=== PATIENT | female | born 1950 | race Caucasian/White ===

== ENCOUNTER 2016-07-18 08:14 | Emergency (ER) | payer MEDICARE, BC ==
[2016-07-18] VITALS (7 sets, daily range): BP systolic 191–223; BP diastolic 89–91; PULSE 46–60; RESP 18; TEMP 98.1; O2SAT 96–97
[~2016-07-18] VITALS: Ht 160 cm; Wt 111.0 kg
[~2016-07-18 08:14] MED LIST: ALLO300T2 PO; CHOL50008 PO; COUM5TAB PO; COUM7.5T PO; FOLI800T PO; METF1000 PO; PRIL40CA PO; SYNT175T PO; TOPR100T PO
[2016-07-18] MEDS ORDERED: PANT40TA3 PO (08:32)
--- NOTE | 2016-07-18 09:09 | PD ---
HPI Chief Complaint: Hypertension Time Seen by Provider: 08:57 Travel History International Travel<30 days: No Contact w/Intl Traveler<30days: No Traveled to known affect area: No History of Present Illness HPI 66-year-old female with history of hypertension, diabetes, gastric bypass, PE on Coumadin, here for evaluation of elevated blood pressure and headache. The patient reports that for the last 2 weeks she has been having issues with elevated blood pressure. She is on metoprolol and was started on losartan 2 weeks ago. 3 days ago she had lumbar spine injection for spinal stenosis. This morning when she woke up she had a frontal dull headache described as a pressure which has progressively getting worse, is moderate. No photophobia. No neck pain or stiffness. No fevers or chills. No back pain. No chest pain or dyspnea. No visual disturbances. No paresthesias or motor deficits. PFSH Past Medical History Hx Anticoagulant Therapy: Yes (COUMADIN) Cancer: No Cardiovascular Problems: Yes (HTN) Diabetes: Yes (BORDERLINE) Patient Takes Glucophage: Yes Endocrine: No Fibromyalgia: Yes Gastrointestinal Disorders: Yes (gerd, "BAD PANCREATITIS X 2") GERD: Yes Gout: Yes Genitourinary: Yes (gout) Hepatitis: No Hiatal Hernia: No Hypertension: Yes Immune Disorder: Yes (fibromyalgia) Musculoskeletal: Yes (back pain) Neurologic: No Psychiatric: No Reproductive: No Respiratory: Yes (BILATERAL PE ) Thyroid Disease: No Influenza Vaccination: Yes ?: Not Past Surgical History Abdominal Surgery: Yes (appy, gallbladder) AICD: No Appendectomy: Yes Body Medical Devices: none Cardiac Surgery: No Cholecystectomy: Yes Ear Surgery: No Endocrine Surgery: No Eye Surgery: No Genitourinary Surgery: Yes (cysto) Gynecologic Surgery: Yes (lap cyst removal) Joint Replacement: No Oral Surgery: No Pacemaker: No Thoracic Surgery: No Other Surgery: Yes Social History Alcohol Use: No Tobacco Use: No Substance Use: No Allergies-Medications (Allergen,Severity, Reaction): Coded Allergies: Lovenox (Unverified Allergy, Severe, pancreatitis, 07/18/16) Reported Meds & Prescriptions Reported Meds & Active Scripts Active Reported Pantoprazole (Pantoprazole Sodium) 40 Mg Tab 40 Mg PO DAILY Allopurinol 300 Mg Tab 300 Mg PO HS Folic Acid 800 Mcg Tab 800 Mcg PO DAILY Metformin (Metformin HCl) 1,000 Mg Tab 1,000 Mg PO BIDPC With meals Synthroid (Levothyroxine Sodium) 175 Mcg Tab 175 Mcg PO DAILY Toprol XL (Metoprolol Succinate) 100 Mg Tab 100 Mg PO BID Vitamin D3 (Cholecalciferol) 5,000 Unit Tab 8,000 Units PO DAILY Coumadin (Warfarin) 5 Mg Tab 2.5 Mg PO DAILY Review of Systems Except as stated in HPI: all other systems reviewed are Neg Physical Exam Narrative GENERAL: Well-developed, well-nourished, pleasant, comfortable, no acute distress. SKIN: Warm and dry. No rash. HEAD: Atraumatic. Normocephalic. EYES: Pupils equal, round, 3 mm, reactive to light. EOMI. No scleral icterus. No injection or drainage. ENT: No nasal bleeding or discharge. Mucous membranes pink and moist. Normal tympanic membrane and external auditory canals bilaterally. NECK: Trachea midline. No JVD. No nuchal rigidity. CARDIOVASCULAR: Regular rate and rhythm. RESPIRATORY: No accessory muscle use. Clear to auscultation. Breath sounds equal bilaterally. GASTROINTESTINAL: Abdomen soft, non-tender, nondistended. MUSCULOSKELETAL: No obvious deformities. No clubbing. No cyanosis. No edema. NEUROLOGICAL: Awake and alert. No obvious cranial nerve deficits. Motor grossly within normal limits. Normal speech. No focal deficits. PSYCHIATRIC: Appropriate mood and affect; insight and judgment normal. Data Data Last Documented VS Vital Signs Date Time Temp Pulse Resp B/P Pulse Ox O2 Delivery O2 Flow Rate FiO2 07/18/16 10:15 191/91 07/18/16 09:55 60 18 97 Room Air 07/18/16 08:17 98.1 Orders Basic Metabolic Panel (Bmp) (07/18/16 09:04) Complete Blood Count With Diff (07/18/16 09:04) Prothrombin Time / Inr (Pt) (07/18/16 09:04) Act Partial Throm Time (Ptt) (07/18/16 09:04) Iv Access Insert/Monitor (07/18/16 09:04) Ecg Monitoring (07/18/16 09:04) Oximetry (07/18/16 09:04) Sodium Chloride 0.9% Flush (Ns Flush) (07/18/16 09:15) Electrocardiogram (07/18/16 09:04) Ct Brain W/O Iv Contrast(Rout) (07/18/16 ) Acetaminophen (Tylenol) (07/18/16 09:15) Metoclopramide Inj (Reglan Inj) (07/18/16 09:15) Hydralazine Inj (Apresoline Inj) (07/18/16 09:15) Labs Laboratory Tests Test 07/18/16 08:30 White Blood Count 7.4 TH/MM3 Red Blood Count 3.85 MIL/MM3 Hemoglobin 12.6 GM/DL Hematocrit 37.1 % Mean Corpuscular Volume 96.2 FL Mean Corpuscular Hemoglobin 32.6 PG Mean Corpuscular Hemoglobin 33.8 % Concent Red Cell Distribution Width 13.3 % Platelet Count 206 TH/MM3 Mean Platelet Volume 9.0 FL Neutrophils (%) (Auto) 71.2 % Lymphocytes (%) (Auto) 19.0 % Monocytes (%) (Auto) 7.6 % Eosinophils (%) (Auto) 0.4 % Basophils (%) (Auto) 1.8 % Neutrophils # (Auto) 5.3 TH/MM3 Lymphocytes # (Auto) 1.4 TH/MM3 Monocytes # (Auto) 0.6 TH/MM3 Eosinophils # (Auto) 0.0 TH/MM3 Basophils # (Auto) 0.1 TH/MM3 CBC Comment DIFF FINAL Differential Comment Prothrombin Time 18.4 SEC Prothromb Time International 1.6 RATIO Ratio Activated Partial 29.2 SEC Thromboplast Time Sodium Level 139 MEQ/L Potassium Level 4.1 MEQ/L Chloride Level 107 MEQ/L Carbon Dioxide Level 24.8 MEQ/L Anion Gap 7 MEQ/L Blood Urea Nitrogen 27 MG/DL Creatinine 0.80 MG/DL Estimat Glomerular Filtration 72 ML/MIN Rate Random Glucose 120 MG/DL Calcium Level 9.2 MG/DL [facility] Medical Decision Making Medical Screen Exam Complete: Yes Emergency Medical Condition: Yes Medical Record Reviewed: Yes Interpretation(s) EKG: Sinus, rate 45, normal axis, normal intervals, no acute ischemic abnormality. Differential Diagnosis Hypertensive urgency, hypertensive crisis, intracranial abnormality, uncontrolled blood pressure, tension headache, cluster headache, migraine Narrative Course Initial vital signs show heart rate 52, blood pressure 223/91, pulse ox 98% on room air, oral temp of 98.1F. CBC is unremarkable. BMP is remarkable for BUN 27, otherwise unremarkable. The patient denies melena or hematochezia. INR is 1.6. CT head read as normal exam. The patient was given Reglan, Tylenol, and IV hydralazine and headache has resolved. There is no nuchal rigidity. She is afebrile. I do not believe she has meningitis or encephalitis. BP improved to 198/83 after 10 mg of hydralazine. Bradycardia is likely secondary to metoprolol. The patient is not displaying any signs or symptoms of hypertensive crisis. I do not want to lower her blood pressure much quicker here in the emergency department. At this point my plan is to discharge her home with a prescription for hydralazine. She'll follow-up with her primary care physician this week. She was informed on when to return to the emergency department. She verbalizes understanding and agreement with plan. Diagnosis Primary Impression: Elevated blood pressure reading Additional Impression: Headache Qualified Code: R51 - Acute nonintractable headache, unspecified headache type Referrals: Primary Care Physician 3 days Additional Instructions: Follow-up with your primary care physician this week. Start taking hydralazine as prescribed. Return to the emergency department for worsening symptoms or any other concerns as discussed. Scripts Hydralazine 10 Mg Tab10 Mg PO TID 30 Days Ref 0 Take with a meal Prov:Simone Troncoso MD 07/18/16 Disposition: 01 DISCHARGE HOME Condition: Stable Simone Troncoso MD Jul 18, 2016 09:09
[2016-07-18 09:15] LABS: AUTOMATED NEUTROPHIL # 5.3 TH/MM3 (1.8-7.7); BASOPHIL # 0.1 TH/MM3 (0-0.2); BASOPHIL % 1.8 % (0.0-2.0); EOSINOPHIL % 0.4 % (0.0-4.0); HEMATOCRIT 37.1 % (35.0-46.0); HEMO FLAGS DIFF FINAL; LYMPHOCYTE # 1.4 TH/MM3 (1.0-4.8); MEAN CELL VOLUME 96.2 FL (80.0-100.0); MEAN CORPUSCULAR HEMOGLOBIN 32.6 PG (27.0-34.0); MEAN CORPUSCULAR HGB CONC 33.8 % (32.0-36.0); MONO % 7.6 % (0.0-8.0); NEUT % 71.2 % (16.0-70.0); PLATELET COUNT 206 TH/MM3 (150-450); RED BLOOD COUNT 3.85 MIL/MM3 (4.00-5.30); RED CELL DISTRIBUTION WIDTH 13.3 % (11.6-17.2); WHITE BLOOD COUNT 7.4 TH/MM3 (4.0-11.0)
[2016-07-18] MEDS ORDERED: ACETAMINOPHEN 325 MG TAB PO ONE (09:15)
[2016-07-18] MEDS ORDERED: SODIUM CHLORIDE 0.9% FLUSH 5 ML FLUSH IVF PRN (09:15)
[2016-07-18] MEDS ORDERED: METOCLOPRAMIDE HCL 10 MG/2 ML VIAL IV PUSH ONE (09:15)
[2016-07-18] MEDS ORDERED: hydrALAZINE HCL 20 MG/ML VIAL IV PUSH ONE (09:15)
[2016-07-18 09:25] LABS: APTT (PATIENT) 29.2 SEC (24.3-30.1); INTERNATIONAL NORMALIZED RATIO 1.6 RATIO; PROTHROMBIN TIME - PATIENT 18.4 SEC (9.8-11.6)
[2016-07-18 09:36] LABS: POTASSIUM 4.1 MEQ/L (3.5-5.1)
--- NOTE | 2016-07-18 09:42 | RADHPO ---
EXAM DATE/TIME: 07/18/2016 09:17 [facility] COMPARISON: No previous studies available for comparison. INDICATIONS : Cephalgia for one week. RADIATION DOSE: 60.95 CTDIvol (mGy) MEDICAL HISTORY : Hypertension. pulmonary embolism SURGICAL HISTORY : Cholecystectomy. ENCOUNTER: Initial ACUITY: 1 week PAIN SCALE: 7/10 LOCATION: Bilateral head TECHNIQUE: Multiple contiguous axial images were obtained of the head. Using automated exposure control and adj ustment of the mA and/or kV according to patient size, radiation dose was kept as low as reasonably a chievable to obtain optimal diagnostic quality images. FINDINGS: CEREBRUM: The ventricles are normal for age. No evidence of midline shift, mass lesion, hemorrhage or acute in farction. No extra-axial fluid collections are seen. POSTERIOR FOSSA: The cerebellum and brainstem are intact. The 4th ventricle is midline. The cerebellopontine angle i s unremarkable. EXTRACRANIAL: The visualized portion of the orbits is intact. SKULL: The calvaria is intact. No evidence of skull fracture. CONCLUSION: Normal examination. Alfred Bosch MD on July 18, 2016 at 9:40 Board Certified Radiologist. This report was verified electronically.
[2016-07-18 10:03] LABS: BICARBONATE 24.8 MEQ/L (21.0-32.0)
[2016-07-18] MEDS ORDERED: HYDR10TA23 PO (10:41)
--- NOTE | 2016-07-19 16:03 | EKG ---
Date Performed: 07/18/2016 Time Performed: 09:04:34 PTAGE: 66 years EKG: Sinus bradycardia Rate has slowed since prior tracing Normal ECG except for rate PREVIOUS TRACING : 07/22/2015 14.45 DOCTOR: Kael Munoz Interpretating Date/Time 07/19/2016 16:02:31
[2016-12-08] MEDS ORDERED: BIOTCAP PO (07:24)
[2016-12-08] MEDS ORDERED: PANT40TA3 PO (07:24)
[2016-12-08] MEDS ORDERED: LOSA50TA PO (07:24)
== END 2016-07-18 10:59 | disposition home or self-care (01) ==
LOC: PHED 08:14
DX: I10 Essential (primary) hypertension (principal); E11.9 Type 2 diabetes mellitus without complications; M10.9 Gout, unspecified; R51 Headache; Z98.84 Bariatric surgery status; Z79.01 Long term (current) use of anticoagulants; Z79.4 Long term (current) use of insulin
CPT/HCPCS: 70450; 80048; 85025; 85610; 85730; 93005; 96374; 96375; 99284; J0360; J2765

== ENCOUNTER 2016-11-29 10:08 | Emergency (ER) | payer MEDICARE, BC ==
[~2016-11-29] VITALS: Ht 160 cm; Wt 108.0 kg
[~2016-11-29 10:08] MED LIST changes: -COUM7.5T PO; +HYDR10TA23 PO; +PANT40TA3 PO; -PRIL40CA PO
[2016-11-29 10:12] VITALS: BP 204/100; PULSE 61; RESP 18; TEMP 98.1; O2SAT 95
[2016-11-29] MEDS ORDERED: HYDR-3534 PO (10:34)
[2016-11-29] MEDS ORDERED: PENI500T PO (10:34)
--- NOTE | 2016-11-29 10:34 | PD ---
HPI Chief Complaint: Oral / Dental Pain or Problem Time Seen by Provider: 10:23 Travel History International Travel<30 days: No Contact w/Intl Traveler<30days: No Traveled to known affect area: No History of Present Illness HPI This 66-year-old female is complaining of pain left side of her jaw. She has a tooth that is extremely tender and has been hurting her for a couple of days. The surrounding area has become quite swollen and painful. It feels warm. He has a history of hypertension. PFSH Past Medical History Hx Anticoagulant Therapy: Yes (COUMADIN) Cancer: No Cardiovascular Problems: Yes (HTN) Diabetes: Yes (BORDERLINE) Patient Takes Glucophage: No Endocrine: No Fibromyalgia: Yes Gastrointestinal Disorders: Yes (gerd, "BAD PANCREATITIS X 2") GERD: Yes Gout: Yes Genitourinary: Yes (gout) Hepatitis: No Hiatal Hernia: No Hypertension: Yes Immune Disorder: Yes (fibromyalgia) Musculoskeletal: Yes (back pain) Neurologic: No Psychiatric: No Reproductive: No Respiratory: Yes (BILATERAL PE ) Thyroid Disease: Yes ?: Not Menopausal: Yes Past Surgical History Abdominal Surgery: Yes (BARIATRIC) AICD: No Appendectomy: Yes Body Medical Devices: none Cardiac Surgery: No Cholecystectomy: Yes Ear Surgery: No Endocrine Surgery: No Eye Surgery: No Genitourinary Surgery: Yes (cysto) Gynecologic Surgery: Yes (lap cyst removal) Joint Replacement: No Oral Surgery: No Pacemaker: No Thoracic Surgery: No Other Surgery: Yes Social History Alcohol Use: No Tobacco Use: No Substance Use: No Allergies-Medications (Allergen,Severity, Reaction): Coded Allergies: Lovenox (Unverified Allergy, Severe, pancreatitis, 07/18/16) Reported Meds & Prescriptions Reported Meds & Active Scripts Active Hydralazine (Hydralazine HCl) 10 Mg Tab 10 Mg PO TID 30 Days Take with a meal Reported Pantoprazole (Pantoprazole Sodium) 40 Mg Tab 40 Mg PO DAILY Allopurinol 300 Mg Tab 300 Mg PO HS Folic Acid 800 Mcg Tab 800 Mcg PO DAILY Metformin (Metformin HCl) 1,000 Mg Tab 1,000 Mg PO BIDPC With meals Synthroid (Levothyroxine Sodium) 175 Mcg Tab 175 Mcg PO DAILY Toprol XL (Metoprolol Succinate) 100 Mg Tab 100 Mg PO BID Vitamin D3 (Cholecalciferol) 5,000 Unit Tab 8,000 Units PO DAILY Coumadin (Warfarin) 5 Mg Tab 2.5 Mg PO DAILY Review of Systems General / Constitutional: No: Fever Eyes: No: Diploplia, Blurred Vision HENT: Positive: Dental Difficulties Cardiovascular: No: Chest Pain or Discomfort Respiratory: No: Cough Gastrointestinal: No: Diarrhea Genitourinary: No: Urgency, Frequency Physical Exam Narrative GENERAL: Well-developed female SKIN: Focused skin assessment warm/dry. HEAD: Atraumatic. Normocephalic. EYES: Pupils equal and round. No scleral icterus. No injection or drainage. ENT: No nasal bleeding or discharge. Mucous membranes pink and moist. The left maxillary canine is very tender to touch. The surrounding gum and tender. There is some soft tissue swelling of the left side NECK: Trachea midline. No JVD. CARDIOVASCULAR: Regular rate and rhythm. No murmur appreciated. RESPIRATORY: No accessory muscle use. Clear to auscultation. Breath sounds equal bilaterally. GASTROINTESTINAL: Abdomen soft, non-tender, nondistended. Hepatic and splenic margins not palpable. MUSCULOSKELETAL: No obvious deformities. No clubbing. No cyanosis. No edema. NEUROLOGICAL: Awake and alert. No obvious cranial nerve deficits. Motor grossly within normal limits. Normal speech. PSYCHIATRIC: Appropriate mood and affect; insight and judgment normal. Data Data Last Documented VS Vital Signs Date Time Temp Pulse Resp B/P Pulse Ox O2 Delivery O2 Flow Rate FiO2 11/29/16 10:12 98.1 61 18 204/100 95 MDM Medical Decision Making Medical Screen Exam Complete: Yes Emergency Medical Condition: Yes Medical Record Reviewed: Yes Differential Diagnosis Differential includes abscess, angioedema Narrative Course The swelling and tenderness is based at a tooth that is very tender. I don't see an obvious cavity on the tooth but it seems to be the source of the problem and I don't think this is angioedema. She'll be placed on penicillin and Lortab with recommendations that she see a dentist Diagnosis Primary Impression: Dental abscess Scripts Hydrocodone-Acetaminophen (Lortab)7.5-325 Mg Tab1 Tab PO Q4H PRN (PAIN) #30 TAB Ref 0 Prov:Jeff Dodson MD 11/29/16 Penicillin V Potassium 500 Mg [id number] Mg PO Q6H #40 TAB Ref 0 Prov:Jeff Dodson MD 11/29/16 Disposition: 01 DISCHARGE HOME Condition: Stable Jeff Dodson MD November 29, 2016 10:34
[2016-12-08] MEDS ORDERED: BIOTCAP PO (07:24)
[2016-12-08] MEDS ORDERED: PANT40TA3 PO (07:24)
[2016-12-08] MEDS ORDERED: LOSA50TA PO (07:24)
== END 2016-11-29 10:43 | disposition home or self-care (01) ==
LOC: PHEFT 10:08
DX: K04.7 Periapical abscess without sinus (principal); I10 Essential (primary) hypertension; M79.7 Fibromyalgia; Z79.01 Long term (current) use of anticoagulants; Z98.84 Bariatric surgery status
CPT/HCPCS: 99284

== ENCOUNTER → 2016-12-08 | Day surgery (SDC) | payer MEDICARE, BC ==
[~2016-12-08] MED LIST changes: +BIOTCAP PO; -CHOL50008 PO; +HYDR-3534 PO; -HYDR10TA23 PO; +LIDOCAINE HCL 1% 30 ML VIAL INFIL ONE; +LOSA50TA PO; +MEPERIDINE HCL 50 MG/ML VIAL IV ONE; +MIDAZOLAM HCL 2 MG/2 ML VIAL IV ONE; +PENI500T PO; +PROPOFOL 200 MG/20 ML AMP IV ONE; +SODIUM CHLORIDE 0.9% 10 ML VIAL ONE; +methylPREDNISolone ACETATE 40 MG/ML VIAL I-ARTICULR ONE
--- NOTE | 2016-12-09 08:54 | M6 ---
cc: OSCAR OBREGON M.D. DATE: 1950 PROCEDURE Radiofrequency rhizotomy bilateral lumbar facet joints (bilateral L3-4, L4-5 and L5-S1 facet joints). PROCEDURE NOTE History and physical was completed and signed. Consent was signed. Procedure site was marked. Medications were listed and reconciled. Pain score was recorded. Allergies were noted. Timeout was taken. Fluoroscopy time was recorded where applicable. Sedation was administered or directed by Dr. Obregon. The patient was given oxygen. The patient was monitored by a registered nurse. Total procedure time was greater than 15 minutes. Three levels are being done because imaging studies show arthritis in all lumbar facet joints and because each facet joint is innervated by the medial branches from the nerves above and below that particular joint. The patient reported 50% or greater pain relief from previous diagnostic facet joint blocks done with fluoroscopic guidance. An IV was started, blood pressure cuff, pulse oximeter and EKG were applied. The patient was placed in the prone position on a [place]am table, sedated with small amounts of Versed and fentanyl and propofol titrated to effect. Vital signs were monitored and remained stable throughout the procedure. The lumbar area was scrubbed with antimicrobial solution, prepped with 10% Betadine solution, draped with sterile drapes. Fluoroscopy was used in a slightly oblique angle (Richard dog view) to clearly visualize the target areas which were the cephalad most medial angle of the transverse processes as they met the pedicle in the anatomical location of the medial branch of the posterior primary ramus on the bilateral L3-4, L4-5 and L5-S1 facet joints. The skin was infiltrated with 1% Xylocaine using a 27-gauge needle. An insulated 20-gauge radiofrequency needle with a 10 mm curved tip was advanced to the above-mentioned target areas. Fluoroscopy was used to confirm the needle was properly placed and not near the nerve root. At no time did the patient report any paresthesias down the lower extremity. Once properly positioned thermal lesions took place at 80 degrees centigrade x 100 seconds at each location. Then, a small amount of Depo-Medrol was injected at each location for a total of 40 mg of Depo-Medrol. Following this the patient was taken to the recovery room with stable vital signs, neurologically intact. W. MD MARIELLE Ambriz/[place] /8:35 AM /8:48 AM
== END | disposition home or self-care (01) ==
LOC: PHSDC 06:46
PROVIDERS: ATTEND Pain Medicine Interventional Pain Medicine
DX: M54.5 Low back pain (principal); I10 Essential (primary) hypertension; Z86.718 Personal history of other venous thrombosis and embolism; Z88.5 Allergy status to narcotic agent; Z88.8 Allergy status to other drugs, medicaments and biological substances
CPT/HCPCS: 64635; 64636; 99152; 99153; J1030; J2175; J2250

== ENCOUNTER → 2017-05-20 | Day surgery (SDC) | payer MEDICARE, BC ==
[~2017-05-20] MED LIST changes: +BUPIVACAINE HCL PF 0.75% 30 ML VIAL ONE; -FOLI800T PO; -LIDOCAINE HCL 1% 30 ML VIAL INFIL ONE; -MEPERIDINE HCL 50 MG/ML VIAL IV ONE; -METF1000 PO; -MIDAZOLAM HCL 2 MG/2 ML VIAL IV ONE; +MULTTAB12 PO; +NON-500T13 PO; -SODIUM CHLORIDE 0.9% 10 ML VIAL ONE; +TRIAMCINOLONE ACETONIDE 40 MG/ML VIAL I-ARTICULR ONE; +VITA10002 PO; +VITA100T54 PO; -methylPREDNISolone ACETATE 40 MG/ML VIAL I-ARTICULR ONE
--- NOTE | 2017-05-21 21:41 | M6 ---
cc: OSCAR OBREGON M.D. DATE: 05/20/2017 DATE OF : 1950 PROCEDURE PERFORMED: Fluoroscopically guided injection bilateral lumbar facet joints (bilateral L3-4, L4-5 and L5-S1 facet joints). DESCRIPTION OF THE PROCEDURE IN DETAIL: History and physical was completed and signed. Consent was signed. Procedure site was marked. Medications were listed and reconciled. Pain score was recorded. Allergies were noted. Time out was taken. Fluoroscopy time was recorded where applicable. Sedation was administered or directed by Dr. Obregon. The patient was given oxygen. The patient was monitored by a registered nurse. Total procedure time was greater than 15 minutes IV was started, blood pressure cuff, pulse oximeter and EKG were applied. The patient was placed in the prone position on a [place] table and sedated with small amounts of propofol titrated to effect. Vital signs were monitored and remained stable throughout the procedure. The lumbar area was prepped with alcohol and 10% Betadine solution and draped with sterile drapes. Fluoroscopy was used in a Richard dog view to clearly visualize the bilateral lumbar facet joints at L3-4, L4-5 and L5-S1. Separate sterile 5-inch 22-gauge spinal needles were advanced into these joints under fluoroscopic guidance. There was negative aspiration for blood or any other type of fluid and at each location the patient was given 1 mL of Marcaine 0.75% which contained 10 mg of Kenalog. Following the procedure, the patient was taken to the recovery room with stable vital signs neurologically intact. She will be evaluated immediately and with followup to determine if she has a subjective decrease her usual pain and a corresponding objective increase in her functional capabilities. W. MD MARIELLE Ambriz/MICHELINE /8:59 AM /9:27 PM
== END | disposition home or self-care (01) ==
LOC: PHSDC 07:01
PROVIDERS: ATTEND Pain Medicine Interventional Pain Medicine
DX: M54.5 Low back pain (principal)
CPT/HCPCS: 64493; 64494; 64495; 99152; J3301